=== PATIENT | male | born 1975 | race American Indian/Alaskan Native ===

== ENCOUNTER 2019-05-05 15:12 | Emergency (ER) | payer BC ==
[2019-05-05] MEDS ORDERED: predniSONE 20 MG Tab PO ONE ×2 (15:13→17:19)
[2019-05-05] MEDS ORDERED: Albuterol 8 GM Inhaler INH ONE (15:13)
[2019-05-05] MEDS ORDERED: Azithromycin 250 MG Tab PO ONE (15:13)
[2019-05-05] MEDS ORDERED: Albuterol/Ipratropium 3.0-0.5 MG/3 ML Neb Soln NEB ONE (16:26)
--- NOTE | 2019-05-05 17:06 | EDM.PDOC ---
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 He reports that the past 2 weeks he has had increasing cough with feelings of shortness of breath and difficulty breathing which seems to be much worse when he is at work and better when he is away from work for a while. Over the past few days he has noted marked shortness of breath and feeling like he can't get his breath. He has no pain. He rates his pain as a 0/10. He has had no nausea or vomiting. He has had unusual nasal congestion (he does have allergy type symptoms on a regular basis). He has had no fevers or chills. He is a smoker and he has a chronic cough but the cough seems to be much worse and he has really had no phlegm production except for clear/white phlegm there are no other associated signs or symptoms. There are no other modifying factors. 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 environments.) ED ROS GENERAL - Review of Systems Review Of Systems: See Below Constitutional: Reports: No Symptoms HEENT: Reports: Other (Chronic nasal congestion) Respiratory: Reports: Shortness of Breath, Cough Cardiovascular: Reports: No Symptoms GI/Abdominal: Reports: No Symptoms : Reports: No Symptoms Musculoskeletal: Reports: No Symptoms Skin: Reports: No Symptoms Neurological: Reports: No Symptoms Hematologic/Lymphatic: Reports: No Symptoms Immunologic: Reports: No Symptoms ED EXAM, GENERAL - Physical Exam Exam: See Below Exam Limited By: No Limitations General Appearance: Alert, WD/WN, No Apparent Distress, Other (It should be noted that the patient is being examined after DuoNeb has been given.) Eye Exam: Bilateral Eye: EOMI, Normal Inspection, PERRL Ears: Normal External Exam, Hearing Grossly Normal Ear Exam: Bilateral Ear: Auricle Normal Nose: Normal Inspection, Normal Mucosa, No Blood Throat/Mouth: Normal Inspection, Normal Lips, Normal Oropharynx, Normal Voice, No Airway Compromise, Other (No stridor) Head: Atraumatic, Normocephalic Neck: Normal Inspection, Supple, Non-Tender, Full Range of Motion Respiratory/Chest: No Respiratory Distress, Lungs Clear, Normal Breath Sounds, No Accessory Muscle Use, Chest Non-Tender Cardiovascular: Normal Peripheral Pulses, Regular Rate, Rhythm, No JVD, No Murmur Peripheral Pulses: 2+: Radial (L), Radial (R) GI/Abdominal: Normal Bowel Sounds, Soft, Non-Tender, No Mass Back Exam: Normal Inspection Extremities: Normal Inspection, Normal Range of Motion, Non-Tender, No Pedal Edema, Normal Capillary Refill Neurological: Alert, Oriented, CN II-XII Intact, Normal Cognition, No Motor/ Sensory Deficits Psychiatric: Normal Affect Skin Exam: Warm, Dry, Intact, Normal Color, No Rash Course - Vital Signs Last Recorded V/S: Last Vital Signs Temp 36.6 C 05/05/19 16:02 Pulse 75 05/05/19 16:02 Resp 18 05/05/19 16:02 BP 119/72 05/05/19 16:02 Pulse Ox 94 L 05/05/19 16:02 - Orders/Labs/Meds Orders: Active Orders 24 hr Category Date Time Status RT Aerosol Therapy [RC] ASDIRECTED Care 05/05/19 16:26 Active Chest 2V [CR] Stat Exams 05/05/19 16:26 Taken Meds: Medications Discontinued Medications Generic Name Dose Route Start Last Admin Trade Name Dora PRN Reason Stop Dose Admin Albuterol/Ipratropium 3 ml 05/05/19 16:26 05/05/19 16:31 Duoneb 3.0-0.5 Mg/3 Ml NEB 05/05/19 16:27 3 ml ONETIME ONE Administration Prednisone 60 mg 05/05/19 17:19 05/05/19 17:50 Prednisone PO 05/05/19 17:20 60 mg ONETIME ONE Administration Prednisone Confirm 05/05/19 17:47 05/05/19 18:42 Prednisone Administered 05/05/19 17:48 Not Given Dose 60 mg .ROUTE .[facility] - Radiology Interpretation Free Text/Narrative:: Chest x-ray PA and lateral shows some evidence of COPD with scarring in the left base. There is no infiltrate seen - Re-Assessments/Exams Free Text/Narrative Re-Assessment/Exam: 05/05/19 17:15: The patient received an DuoNeb nebulizer treatment and felt much improved after this. His history is consistent with active airway disease that is allergen induced associated with COPD. The patient is supposed to be wearing a respirator at his work but reports that he does not do this very often because he doesn't like to use it. He does report that seemed to show up approximately 2 weeks ago when he was moved to another area the plan that was more jennifer. His chest x-ray shows no infiltrate. I suspect that this is mostly allergen induced but he may have infectious component associated with COPD. Will treat the patient with Zithromax for 5 day course, prednisone for 5 day course and I will give the patient a prescription for an albuterol inhaler. He is to increase his fluid intake. He is to use his respirator at work. He is advised to follow-up with his primary doctor and to quit smoking. Precautions and reasons for return to the emergency department were discussed with the patient prior to his discharge. Departure - Departure Time of Disposition: 17:30 Disposition: Home, Self-Care 01 Condition: Good (Improved) Clinical Impression: Reactive airway disease Qualifiers: Asthma severity: moderate Asthma persistence: persistent Asthma complication type: with acute exacerbation Qualified Code(s): J45.41 - Moderate persistent asthma with (acute) exacerbation Allergy-induced asthma Qualifiers: Asthma severity: moderate Asthma persistence: persistent Asthma complication type: with acute exacerbation Qualified Code(s): J45.41 - Moderate persistent asthma with (acute) exacerbation - Discharge Information Prescriptions: Albuterol Sulfate [Albuterol Sulfate Hfa] 2 puff IH Q4H PRN #1 hfa.aer.ad PRN Reason: Wheezing/cough/short of breath predniSONE [Prednisone] 60 mg PO DAILY 5 Days #15 tablet Instructions: Bronchospasm, Adult, How to Use a Metered Dose Inhaler Referrals: PCP,Not In Area [Primary Care Provider] - Forms: ED Department Discharge, ED Return to Work/School Form Additional Instructions: You appear to have an allergen induced reactive airway disease. This is an asthma-like condition. Your influenza screen was negative. Your chest x-ray showed no evidence of pneumonia. However, your lungs were somewhat over expanded and given your smoking history, I am concerned that you have the beginning of emphysema and this is being made worse by the dust that you are exposed to at your job. There could also be an infection component associated with it. I strongly advise you to stop smoking. Drink plenty of fluids. Use your respirator while you are at work to protect you from the dust and allergens. Medication as prescribed (Zithromax, prednisone, albuterol inhaler) . Follow-up with your primary doctor. Back to the emergency department for worse breathing, chest pain, high fever, coughing up blood or any other concerning sign or symptom. Sepsis Event Note - Evaluation Sepsis Screening Result: No Definite Risk - Focused Exam Vital Signs: Vital Signs Temp Pulse Resp BP Pulse Ox 05/05/19 16:02 36.6 C 75 18 119/72 94 L Date Exam was Performed: 05/05/19 Time Exam was Performed: 21:50 - My Orders Last 24 Hours: My Active Orders 05/05/19 16:26 RT Aerosol Therapy [RC] ASDIRECTED Chest 2V [CR] Stat - Assessment/Plan Last 24 Hours: My Active Orders 05/05/19 16:26 RT Aerosol Therapy [RC] ASDIRECTED Chest 2V [CR] Stat
[2019-05-05] MEDS ORDERED: predniSONE 20 MG Tab ONE (17:47)
--- NOTE | 2019-05-07 16:58 | CR ---
INDICATION: Shortness of breath. CHEST, TWO VIEWS: PA and lateral views of the chest with 2 PA views 05/05/19 - no comparisons. The heart may be very minimally enlarged in the area of the left ventricle. The mediastinum and bony thorax were otherwise fairly unremarkable. There appear to be some minimal pleuroparenchymal changes at the left costophrenic angle with blunting of the costophrenic angle. This may represent a minimal pneumonia and pleuritis and possibly some atelectasis and should be correlated clinically. If old images of the chest are available for comparison, they may be of further diagnostic benefit. Otherwise, no finding to suggest definite active disease was identified. There is a prominent AP diameter with very minimally flattened diaphragm leaf raising question of obstructive airway disease. It should be correlated clinically. IMPRESSION: 1. Pleuroparenchymal change at the left costophrenic angle may represent pneumonia, pleuritis or possibly some atelectasis. This should be correlated clinically. It could also represent fibrosis. If old films are available for comparison, they may be helpful. 2. Question possibility of obstructive airway disease - correlate clinically. 3. Suggestion of minimal left ventricular enlargement. MTDD
== END 2019-05-05 18:03 | disposition home or self-care (01) ==
LOC: FB.ED 15:12
DX: J45.41 Moderate persistent asthma with (acute) exacerbation (principal); F17.210 Nicotine dependence, cigarettes, uncomplicated
CPT/HCPCS: 71046; 87804; 87804-59; 94640; 99285-25; A9270-GY; J7620-GY

== ENCOUNTER 2019-12-15 17:45 | Observation (INO) | payer BC ==
[~2019-12-15 17:45] MED LIST: Lidocaine 2% 5 ML SDV INJECT ONE; Propofol 200 MG/20 ML SDV IV ONE; Rocuronium 100 MG/10 ML MDV IV ONE; Succinylcholine 200 MG/10 ML MDV IV ONE
[2019-12-15] MEDS ORDERED: Ondansetron 4 MG/2 ML SDV IVPUSH ONE ×2 (17:58→22:20)
[2019-12-15] MEDS ORDERED: Morphine 4 MG/ML VIAL IVPUSH ONE (17:58)
[2019-12-15] MEDS ORDERED: Sodium Chloride 0.9% 1,000 ML IV SCH (18:00)
[2019-12-15] MEDS: Sodium Chloride 0.9% 10 ML Syringe FLUSH PRN (18:20)
[2019-12-15] MEDS ORDERED: Iopamidol 755 Mg/ML 100 ML Bottle IV ONE (18:54)
[2019-12-15] MEDS ORDERED: HYDROmorphone 2 MG/ML SDV IVPUSH ONE (19:32)
--- NOTE | 2019-12-15 20:47 | EDM.PDOC ---
ED HPI GENERAL MEDICAL PROBLEM - General Chief Complaint: Abdominal Pain Stated Complaint: ABD PAIN Time Seen by Provider: 12/15/19 17:50 Source of Information: Reports: Patient History Limitations: Reports: No Limitations - History of Present Illness INITIAL COMMENTS - FREE TEXT/NARRATIVE: Patient presented to the ED because of RLQ and LLQ pain which started at about 3 am today. The pain is sharp and cramping, 8/10. There is no associated N/V diarrhea or constipation. He denies any urinary symptoms, fever, or chills. Abdomen Pain Score (Numeric/FACES): 8 - Related Data Allergies Allergy/AdvReac Type Severity Reaction Status Date / Time No Known Allergies Allergy Verified 05/05/19 16:01 Home Meds: Home Meds Albuterol Sulfate [Albuterol Sulfate Hfa] 2 puff IH Q4H PRN #1 hfa.aer.ad 05/05/19 [Rx] lisinopriL [Zestril] 20 mg PO DAILY 05/05/19 [History] predniSONE [Prednisone] 60 mg PO DAILY 5 Days #15 tablet 05/05/19 [Rx] Past Medical History - Past Health History Medical/Surgical History: Denies Medical/Surgical History Cardiovascular History: Reports: Hypertension - Infectious Disease History Infectious Disease History: Reports: Mumps - Past Surgical History Other Surgical History Comment: No previous surgeries. 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.) ED ROS GENERAL - Review of Systems Review Of Systems: See Below Constitutional: Reports: No Symptoms HEENT: Reports: No Symptoms Respiratory: Reports: No Symptoms Cardiovascular: Reports: No Symptoms Endocrine: Reports: No Symptoms GI/Abdominal: Reports: Abdominal Pain : Reports: No Symptoms Musculoskeletal: Reports: No Symptoms Skin: Reports: No Symptoms Neurological: Reports: No Symptoms Psychiatric: Reports: No Symptoms Hematologic/Lymphatic: Reports: No Symptoms Immunologic: Reports: No Symptoms ED EXAM, GI/ABD - Physical Exam Exam: See Below Exam Limited By: No Limitations General Appearance: Alert, No Apparent Distress Ears: Normal External Exam, Normal Canal Nose: Normal Inspection, Normal Mucosa Throat/Mouth: Normal Inspection, Normal Lips, Normal Teeth Head: Atraumatic, Normocephalic Neck: Normal Inspection, Supple, Non-Tender Respiratory/Chest: No Respiratory Distress, Lungs Clear, Normal Breath Sounds Cardiovascular: Normal Peripheral Pulses, Regular Rate, Rhythm, No Edema, No Gallop GI/Abdominal Exam: Normal Bowel Sounds, Soft, No Organomegaly, No Distention, No Abnormal Bruit, No Mass, Other (tenderness RLQ and LLQ) Back Exam: Normal Inspection, Full Range of Motion Extremities: Normal Inspection, Normal Range of Motion, Non-Tender Course - Vital Signs Text/Narrative:: Labs/CT abd-pelvis result was discussed with patient and verbalized full understanding NS 1 L bolus Zofran 4 mg IV x1 Morphine 4 mg IV x1 Dilaudid 1 mg IV x1 Surgery consult with Dr Malhotra who will perform the appendectomy tonight. Last Recorded V/S: Last Vital Signs Temp 37.0 C 12/15/19 19:35 Pulse 83 12/15/19 19:35 Resp 18 12/15/19 19:35 BP 138/82 12/15/19 19:35 Pulse Ox 97 12/15/19 19:35 - Orders/Labs/Meds Orders: Active Orders 24 hr Category Date Time Status Abdomen Pelvis w Cont [CT] Stat Exams 12/15/19 17:57 Taken CORONAVIRUS COVID-19 PCR PHL Stat Lab 12/15/19 20:40 Ordered Sodium Chloride 0.9% [Normal Saline] 1,000 ml Med 12/15/19 18:00 Active IV ASDIRECTED Sodium Chloride 0.9% [Saline Flush] Med 12/15/19 17:57 Active 10 ml FLUSH ASDIRECTED PRN Saline Lock Insert [OM.PC] Routine Oth 12/15/19 17:57 Ordered Medication Orders Sodium Chloride (Normal Saline) 1,000 mls @ 999 mls/hr IV ASDIRECTED CATHY Last Admin: 12/15/19 18:15 Dose: 999 mls/hr Documented by: FELICIANO Sodium Chloride (Saline Flush) 10 ml FLUSH ASDIRECTED PRN PRN Reason: Keep Vein Open Last Admin: 12/15/19 18:20 Dose: 10 ml Documented by: FELICIANO Labs: Laboratory Tests 12/15/19 12/15/19 12/15/19 Range/Units 18:22 18:22 18:22 WBC 13.6 H (4.5-12.0) X10-3/uL RBC 4.99 (4.30-5.75) x10(6)uL Hgb 13.9 (13.5-17.8) g/dL Hct 41.8 (30.0-51.3) % MCV 83.8 (80-96) fL MCH 27.9 (27.7-33.6) pg MCHC 33.3 (32.2-35.4) g/dL RDW 13.8 (11.5-15.5) % Plt Count 231 (125-369) X10(3)uL MPV 7.2 L (7.4-10.4) fL Neut % (Auto) 68.4 (46-82) % Lymph % (Auto) 19.7 (13-37) % [place] % (Auto) 8.0 (4-12) % Eos % (Auto) 2 (1.0-5.0) % Baso % (Auto) 2 (0-2) % Neut # (Auto) 9.2 H (1.6-8.3) # Lymph # (Auto) 2.7 (0.6-5.0) # [place] # (Auto) 1.1 (0.0-1.3) # Eos # (Auto) 0.3 (0.0-0.8) # Baso # (Auto) 0.3 H (0.0-0.2) # Sodium 138 (135-145) mmol/L Potassium 3.8 (3.5-5.3) mmol/L Chloride 102 (100-110) mmol/L Carbon Dioxide 26 (21-32) mmol/L BUN 17 (7-18) mg/dL Creatinine 1.1 (0.70-1.30) mg/dL Est Cr Clr Drug Dosing TNP Estimated GFR (MDRD) > 60 (>60) BUN/Creatinine Ratio 15.5 (9-20) Glucose 86 (80-116) mg/dL Calcium 8.7 (8.6-10.2) mg/dL Total Bilirubin 0.5 (0.1-1.3) mg/dL AST 13 (5-25) IU/L ALT 17 (12-36) U/L Alkaline Phosphatase 54 L (56-112) IU/L Total Protein 7.3 (6.0-8.0) g/dL Albumin 3.6 (3.5-5.2) g/dL Globulin 3.7 g/dL Albumin/Globulin Ratio 1.0 Amylase 29 (25-115) U/L Lipase 93 (73-393) U/L Urine Color (YELLOW) Urine Appearance (CLEAR) Urine pH (5.0-6.5) Ur Specific [place] (1.010-1.025) Urine Protein (NEGATIVE) mg/dL Urine Glucose (UA) (NORMAL) mg/dL Urine Ketones (NEGATIVE) mg/dL Urine Occult Blood (NEGATIVE) Urine Nitrite (NEGATIVE) Urine Bilirubin (NEGATIVE) Urine Urobilinogen (NEGATIVE) mg/dL Ur Leukocyte Esterase (NEGATIVE) Urine RBC (0-5) Urine WBC (0-5) Ur Squamous Epith Cells (NS,R,O) Urine Bacteria (NS) Urine Mucus (NS) 12/15/19 Range/Units 19:20 WBC (4.5-12.0) X10-3/uL RBC (4.30-5.75) x10(6)uL Hgb (13.5-17.8) g/dL Hct (30.0-51.3) % MCV (80-96) fL MCH (27.7-33.6) pg MCHC (32.2-35.4) g/dL RDW (11.5-15.5) % Plt Count (125-369) X10(3)uL MPV (7.4-10.4) fL Neut % (Auto) (46-82) % Lymph % (Auto) (13-37) % [place] % (Auto) (4-12) % Eos % (Auto) (1.0-5.0) % Baso % (Auto) (0-2) % Neut # (Auto) (1.6-8.3) # Lymph # (Auto) (0.6-5.0) # [place] # (Auto) (0.0-1.3) # Eos # (Auto) (0.0-0.8) # Baso # (Auto) (0.0-0.2) # Sodium (135-145) mmol/L Potassium (3.5-5.3) mmol/L Chloride (100-110) mmol/L Carbon Dioxide (21-32) mmol/L BUN (7-18) mg/dL Creatinine (0.70-1.30) mg/dL Est Cr Clr Drug Dosing Estimated GFR (MDRD) (>60) BUN/Creatinine Ratio (9-20) Glucose (80-116) mg/dL Calcium (8.6-10.2) mg/dL Total Bilirubin (0.1-1.3) mg/dL AST (5-25) IU/L ALT (12-36) U/L Alkaline Phosphatase (56-112) IU/L Total Protein (6.0-8.0) g/dL Albumin (3.5-5.2) g/dL Globulin g/dL Albumin/Globulin Ratio Amylase (25-115) U/L Lipase (73-393) U/L Urine Color Yellow (YELLOW) Urine Appearance Clear (CLEAR) Urine pH 5.0 (5.0-6.5) Ur Specific [place] 1.010 (1.010-1.025) Urine Protein Negative (NEGATIVE) mg/dL Urine Glucose (UA) Normal (NORMAL) mg/dL Urine Ketones 50 H (NEGATIVE) mg/dL Urine Occult Blood Negative (NEGATIVE) Urine Nitrite Negative (NEGATIVE) Urine Bilirubin Negative (NEGATIVE) Urine Urobilinogen 1 H (NEGATIVE) mg/dL Ur Leukocyte Esterase Negative (NEGATIVE) Urine RBC 0-5 (0-5) Urine WBC 0-5 (0-5) Ur Squamous Epith Cells Occasional (NS,R,O) Urine Bacteria Few H (NS) Urine Mucus Few H (NS) Meds: Medications Generic Name Dose Route Start Last Admin Trade Name Freq PRN Reason Stop Dose Admin Sodium Chloride 1,000 mls @ 999 mls/hr 12/15/19 18:00 12/15/19 18:15 Normal Saline IV 999 mls/hr ASDIRECTED CATHY Administration Sodium Chloride 10 ml 12/15/19 17:57 12/15/19 18:20 Saline Flush FLUSH 10 ml ASDIRECTED PRN Administration Keep Vein Open Discontinued Medications Generic Name Dose Route Start Last Admin Trade Name Freq PRN Reason Stop Dose Admin Hydromorphone HCl 1 mg 12/15/19 19:32 12/15/19 19:39 Dilaudid IVPUSH 12/15/19 19:33 1 mg ONETIME ONE Administration Iopamidol 100 ml 12/15/19 18:54 12/15/19 19:12 Isovue-370 (76%) IV 12/15/19 18:55 100 ml ONETIME ONE Administration Morphine Sulfate 4 mg 12/15/19 17:58 12/15/19 18:15 Morphine IVPUSH 12/15/19 17:59 4 mg ONETIME ONE Administration Ondansetron HCl 4 mg 12/15/19 17:58 12/15/19 18:16 Zofran IVPUSH 12/15/19 17:59 4 mg ONETIME ONE Administration Departure - Departure Time of Disposition: 20:50 Disposition: Still A Patient 30 Condition: Good Clinical Impression: Appendicitis - Discharge Information Referrals: PCP,None [Primary Care Provider] - Sepsis Event Note (ED) - Evaluation Sepsis Screening Result: No Definite Risk - Focused Exam Vital Signs: Vital Signs Temp Pulse Pulse Resp BP BP Pulse Ox 12/15/19 19:35 37.0 C 83 18 138/82 97 12/15/19 17:48 36.6 C 59 L 16 114/69 99 - My Orders Last 24 Hours: My Active Orders 12/15/19 17:57 Abdomen Pelvis w Cont [CT] Stat Sodium Chloride 0.9% [Saline Flush] 10 ml FLUSH ASDIRECTED PRN Saline Lock Insert [OM.PC] Routine 12/15/19 18:00 Sodium Chloride 0.9% [Normal Saline] 1,000 ml IV ASDIRECTED 12/15/19 20:40 CORONAVIRUS COVID-19 PCR PHL Stat - Assessment/Plan Last 24 Hours: My Active Orders 12/15/19 17:57 Abdomen Pelvis w Cont [CT] Stat Sodium Chloride 0.9% [Saline Flush] 10 ml FLUSH ASDIRECTED PRN Saline Lock Insert [OM.PC] Routine 12/15/19 18:00 Sodium Chloride 0.9% [Normal Saline] 1,000 ml IV ASDIRECTED 12/15/19 20:40 CORONAVIRUS COVID-19 PCR PHL Stat
[2019-12-15] MEDS ORDERED: cefOXitin 2 GM Vial IVPUSH ONE (21:48)
--- NOTE | 2019-12-15 21:50 | PCM.HPR ---
H & P Addendum review - H & P Addendum Review Date of Original H & P: 12/15/19 Date Reviewed: 12/15/19 Time Reviewed: 21:50 Patient was Examined: No Changes
[2019-12-15] MEDS ORDERED: Lactated Ringers 1,000 ML IV SCH (22:00)
[2019-12-15] MEDS ORDERED: HYDROmorphone 2 MG/ML SDV IV ONE (22:20)
[2019-12-15] MEDS ORDERED: Midazolam 1 MG/ML 2 ML SDV IV ONE (22:20)
[2019-12-15] MEDS ORDERED: Ketorolac 30 MG/ML SDV IVPUSH ONE (22:20)
[2019-12-15] MEDS ORDERED: Neostigmine Methylsulfate 10 MG/10 ML MDV IVPUSH ONE (22:20)
[2019-12-15] MEDS ORDERED: Lactated Ringers 1,000 ML IV ONE (22:20)
[2019-12-15] MEDS ORDERED: Glycopyrrolate 0.2 MG/ML 5 ML MDV IV ONE (22:20)
[2019-12-15] MEDS ORDERED: fentaNYL 100 MCG/2 ML SDV IV ONE (22:20)
[2019-12-15] MEDS ORDERED: Dexamethasone 4 MG/ML 5 ML MDV IVPUSH ONE (22:20)
[2019-12-15] MEDS ORDERED: Morphine 2 MG/ML SYRINGE IVPUSH PRN (23:59)
--- NOTE | 2019-12-15 23:59 | PCM.OPNOTE ---
- General Post-Op/Procedure Note Date of Surgery/Procedure: 12/15/19 Operative Procedure(s): Lap Appy, mobilization of cecum Findings: Contained perforation in mesoappendix Pre Op Diagnosis: Acute Appy Post-Op Diagnosis: Same Anesthesia Technique: General ET Tube Primary Surgeon: Lauri Malhotra Pathology: Appendix EBL in mLs: 10 Complications: None Condition: Good Free Text/Narrative:: Intake & Output 12/15/19 12/15/19 12/16/19 14:59 22:59 06:59 Intake Total 0 Output Total 0 Balance 0
[2019-12-16] MEDS: Lactated Ringers 1,000 ML IV SCH ×3 (02:18→22:18)
[2019-12-16] MEDS: Acetaminophen/HYDROcodone 325-5 MG Tab PO PRN ×3 (08:21→19:05)
[2019-12-16] MEDS ORDERED: cefOXitin 1 GM Vial IVPUSH SCH (10:00)
--- NOTE | 2019-12-16 11:03 | PCM.SURGPN ---
- General Info Date of Service: 12/16/19 POD#: 1 Functional Status: Reports: Pain Controlled, Tolerating Diet (liquids) - Review of Systems General: Denies: Fever Pulmonary: Reports: No Symptoms Cardiovascular: Reports: No Symptoms Gastrointestinal: Reports: No Symptoms - Patient Data Vitals - Most Recent: Last Vital Signs Temp 97.4 F 12/16/19 04:20 Pulse 68 12/15/19 21:00 Resp 16 12/16/19 04:20 BP 105/54 L 12/16/19 04:20 Pulse Ox 95 12/16/19 04:20 Weight - Most Recent: 102.058 kg I&O - Last 24 Hours: Intake & Output 12/15/19 12/16/19 12/16/19 22:59 06:59 14:59 Intake Total 0 1238 Output Total 0 400 Balance 0 838 Lab Results Last 24 Hrs: Laboratory Results - last 24 hr 12/15/19 12/15/19 12/15/19 Range/Units 18:22 18:22 18:22 WBC 13.6 H (4.5-12.0) X10-3/uL RBC 4.99 (4.30-5.75) x10(6)uL Hgb 13.9 (13.5-17.8) g/dL Hct 41.8 (30.0-51.3) % MCV 83.8 (80-96) fL MCH 27.9 (27.7-33.6) pg MCHC 33.3 (32.2-35.4) g/dL RDW 13.8 (11.5-15.5) % Plt Count 231 (125-369) X10(3)uL MPV 7.2 L (7.4-10.4) fL Neut % (Auto) 68.4 (46-82) % Lymph % (Auto) 19.7 (13-37) % [place] % (Auto) 8.0 (4-12) % Eos % (Auto) 2 (1.0-5.0) % Baso % (Auto) 2 (0-2) % Neut # (Auto) 9.2 H (1.6-8.3) # Lymph # (Auto) 2.7 (0.6-5.0) # [place] # (Auto) 1.1 (0.0-1.3) # Eos # (Auto) 0.3 (0.0-0.8) # Baso # (Auto) 0.3 H (0.0-0.2) # Add Manual Diff Neutrophils % (Manual) (46-82) % Band Neutrophils % (0-6) % Lymphocytes % (Manual) (13-37) % Monocytes % (Manual) (4-12) % Sodium 138 (135-145) mmol/L Potassium 3.8 (3.5-5.3) mmol/L Chloride 102 (100-110) mmol/L Carbon Dioxide 26 (21-32) mmol/L BUN 17 (7-18) mg/dL Creatinine 1.1 (0.70-1.30) mg/dL Est Cr Clr Drug Dosing TNP Estimated GFR (MDRD) > 60 (>60) BUN/Creatinine Ratio 15.5 (9-20) Glucose 86 (80-116) mg/dL Calcium 8.7 (8.6-10.2) mg/dL Total Bilirubin 0.5 (0.1-1.3) mg/dL AST 13 (5-25) IU/L ALT 17 (12-36) U/L Alkaline Phosphatase 54 L (56-112) IU/L Total Protein 7.3 (6.0-8.0) g/dL Albumin 3.6 (3.5-5.2) g/dL Globulin 3.7 g/dL Albumin/Globulin Ratio 1.0 Amylase 29 (25-115) U/L Lipase 93 (73-393) U/L Urine Color (YELLOW) Urine Appearance (CLEAR) Urine pH (5.0-6.5) Ur Specific [place] (1.010-1.025) Urine Protein (NEGATIVE) mg/dL Urine Glucose (UA) (NORMAL) mg/dL Urine Ketones (NEGATIVE) mg/dL Urine Occult Blood (NEGATIVE) Urine Nitrite (NEGATIVE) Urine Bilirubin (NEGATIVE) Urine Urobilinogen (NEGATIVE) mg/dL Ur Leukocyte Esterase (NEGATIVE) Urine RBC (0-5) Urine WBC (0-5) Ur Squamous Epith Cells (NS,R,O) Urine Bacteria (NS) Urine Mucus (NS) SARS Virus RNA (PCR) (NEGATIVE) 12/15/19 12/15/19 12/16/19 Range/Units 19:20 20:50 06:15 WBC 14.7 H (4.5-12.0) X10-3/uL RBC 5.29 (4.30-5.75) x10(6)uL Hgb 14.5 (13.5-17.8) g/dL Hct 44.7 (30.0-51.3) % MCV 84.4 (80-96) fL MCH 27.4 L (27.7-33.6) pg MCHC 32.5 (32.2-35.4) g/dL RDW 13.8 (11.5-15.5) % Plt Count 372 H (125-369) X10(3)uL MPV 7.9 (7.4-10.4) fL Neut % (Auto) (46-82) % Lymph % (Auto) (13-37) % [place] % (Auto) (4-12) % Eos % (Auto) (1.0-5.0) % Baso % (Auto) (0-2) % Neut # (Auto) (1.6-8.3) # Lymph # (Auto) (0.6-5.0) # [place] # (Auto) (0.0-1.3) # Eos # (Auto) (0.0-0.8) # Baso # (Auto) (0.0-0.2) # Add Manual Diff Yes Neutrophils % (Manual) 81 (46-82) % Band Neutrophils % 4 (0-6) % Lymphocytes % (Manual) 7 L (13-37) % Monocytes % (Manual) 8 (4-12) % Sodium (135-145) mmol/L Potassium (3.5-5.3) mmol/L Chloride (100-110) mmol/L Carbon Dioxide (21-32) mmol/L BUN (7-18) mg/dL Creatinine (0.70-1.30) mg/dL Est Cr Clr Drug Dosing Estimated GFR (MDRD) (>60) BUN/Creatinine Ratio (9-20) Glucose (80-116) mg/dL Calcium (8.6-10.2) mg/dL Total Bilirubin (0.1-1.3) mg/dL AST (5-25) IU/L ALT (12-36) U/L Alkaline Phosphatase (56-112) IU/L Total Protein (6.0-8.0) g/dL Albumin (3.5-5.2) g/dL Globulin g/dL Albumin/Globulin Ratio Amylase (25-115) U/L Lipase (73-393) U/L Urine Color Yellow (YELLOW) Urine Appearance Clear (CLEAR) Urine pH 5.0 (5.0-6.5) Ur Specific [place] 1.010 (1.010-1.025) Urine Protein Negative (NEGATIVE) mg/dL Urine Glucose (UA) Normal (NORMAL) mg/dL Urine Ketones 50 H (NEGATIVE) mg/dL Urine Occult Blood Negative (NEGATIVE) Urine Nitrite Negative (NEGATIVE) Urine Bilirubin Negative (NEGATIVE) Urine Urobilinogen 1 H (NEGATIVE) mg/dL Ur Leukocyte Esterase Negative (NEGATIVE) Urine RBC 0-5 (0-5) Urine WBC 0-5 (0-5) Ur Squamous Epith Cells Occasional (NS,R,O) Urine Bacteria Few H (NS) Urine Mucus Few H (NS) SARS Virus RNA (PCR) Negative (NEGATIVE) Med Orders - Current: Current Medications Hydrocodone Bitart/Acetaminophen ([place] 325-5 Mg) 1 tab PO Q4H PRN PRN Reason: Pain (mild 1-3) Last Admin: 12/16/19 08:21 Dose: 1 tab Documented by: Sodium Chloride (Normal Saline) 1,000 mls @ 999 mls/hr IV ASDIRECTED [facility] Last Admin: 12/15/19 18:15 Dose: 999 mls/hr Documented by: Lactated Ringer's (Ringers, Lactated) 1,000 mls @ 125 mls/hr IV ASDIRECTED [facility] Last Admin: 12/16/19 02:18 Dose: 125 mls/hr Documented by: Piperacillin Sod/Tazobactam (Sod 3.375 gm/ Sodium Chloride) 50 mls @ 100 mls/hr IV Q6H [facility] Stop: 12/21/19 11:01 Morphine Sulfate (Morphine) 2 mg IVPUSH Q1H PRN PRN Reason: Pain (severe 7-10) Last Admin: 12/16/19 04:31 Dose: 2 mg Documented by: Sodium Chloride (Saline Flush) 10 ml FLUSH ASDIRECTED PRN PRN Reason: Keep Vein Open Last Admin: 12/15/19 18:20 Dose: 10 ml Documented by: Discontinued Medications Cefoxitin Sodium (Mefoxin) 2 gm IVPUSH ONETIME ONE Stop: 12/15/19 21:49 Last Admin: 12/15/19 22:54 Dose: Not Given Documented by: Cefoxitin Sodium (Mefoxin) 1 gm IVPUSH Q6H [facility] Last Admin: 12/16/19 10:24 Dose: 1 gm Documented by: Hydromorphone HCl (Dilaudid) 1 mg IVPUSH ONETIME ONE Stop: 12/15/19 19:33 Last Admin: 12/15/19 19:39 Dose: 1 mg Documented by: Lactated Ringer's (Ringers, Lactated) 1,000 mls @ 0 mls/hr IV ASDIRECTED [facility] Last Admin: 12/15/19 21:52 Dose: 25 mls/hr Documented by: Cefoxitin Sodium 1 gm/ Sodium (Chloride) 50 mls @ 100 mls/hr IVPUSH Q6H [facility] Stop: 12/20/19 04:01 Last Admin: 12/16/19 03:44 Dose: 100 mls/hr Documented by: Iopamidol (Isovue-370 (76%)) 100 ml IV ONETIME ONE Stop: 12/15/19 18:55 Last Admin: 12/15/19 19:12 Dose: 100 ml Documented by: Morphine Sulfate (Morphine) 4 mg IVPUSH ONETIME ONE Stop: 12/15/19 17:59 Last Admin: 12/15/19 18:15 Dose: 4 mg Documented by: Ondansetron HCl (Zofran) 4 mg IVPUSH ONETIME ONE Stop: 12/15/19 17:59 Last Admin: 12/15/19 18:16 Dose: 4 mg Documented by: - Exam Wound/Incisions: Healing Well, Dressing Dry and Intact General: Alert, Oriented Lungs: Clear to Auscultation GI/Abdominal Exam: Soft, Non-Tender Sepsis Event Note - Evaluation Sepsis Screening Result: No Definite Risk - Focused Exam Vital Signs: Vital Signs Temp Temp Resp BP Pulse Ox 12/16/19 04:20 97.4 F 16 105/54 L 95 12/16/19 02:53 16 122/62 96 12/16/19 02:30 97.1 F 16 123/71 99 12/16/19 01:55 15 95/60 95 12/16/19 01:25 15 96/60 95 12/16/19 01:10 97.2 F 15 95/59 L 95 12/16/19 00:55 14 99/62 96 12/16/19 00:40 97.6 F 14 106/70 97 12/16/19 00:26 115/66 12/16/19 00:25 14 97 12/16/19 00:20 12 108/70 97 12/16/19 00:15 14 123/69 97 12/16/19 00:10 14 126/79 97 12/16/19 00:05 15 121/74 94 L 12/16/19 00:00 17 118/72 100 12/15/19 23:55 97.4 F 18 132/83 100 Date Exam was Performed: 12/16/19 Time Exam was Performed: 11:01 - Problem List Review Problem List Initiated/Reviewed/Updated: Yes - My Orders Last 24 Hours: Active Orders 24 hr Category Date Time Status Patient Status [ADT] Routine ADT 12/15/19 23:59 Active Oxygen Therapy [RC] PRN Care 12/15/19 23:59 Active RT Incentive Spirometry [RC] Q2HWA Care 12/15/19 23:59 Active Clear Liquid Diet [DIET] Diet 12/17/19 Breakfast Ordered Abdomen Pelvis w Cont [CT] Stat Exams 12/15/19 17:57 Taken CBC WITH AUTO DIFF [HEME] Routine Lab 12/17/19 07:00 Ordered Acetaminophen/HYDROcodone [[place] 325-5 MG] Med 12/15/19 23:59 Active 1 tab PO Q4H PRN Lactated Ringers [Ringers, Lactated] 1,000 ml Med 12/15/19 23:45 Active IV ASDIRECTED Morphine Med 12/15/19 23:59 Active 2 mg IVPUSH Q1H PRN Piperacillin/Tazobactam [Zosyn] 3.375 gm Med 12/16/19 11:00 Ordered Sodium Chloride 0.9% [Normal Saline] 50 ml IV Q6H Sodium Chloride 0.9% [Normal Saline] 1,000 ml Med 12/15/19 18:00 Active IV ASDIRECTED Sodium Chloride 0.9% [Saline Flush] Med 12/15/19 17:57 Active 10 ml FLUSH ASDIRECTED PRN Saline Lock Insert [OM.PC] Routine Oth 12/15/19 17:57 Ordered Resuscitation Status Routine Resus Stat 12/15/19 23:59 Ordered Medication Orders Hydrocodone Bitart/Acetaminophen ([place] 325-5 Mg) 1 tab PO Q4H PRN PRN Reason: Pain (mild 1-3) Last Admin: 12/16/19 08:21 Dose: 1 tab Documented by: BUBBA Sodium Chloride (Normal Saline) 1,000 mls @ 999 mls/hr IV ASDIRECTED [facility] Last Admin: 12/15/19 18:15 Dose: 999 mls/hr Documented by: FELICIANO Lactated Ringer's (Ringers, Lactated) 1,000 mls @ 125 mls/hr IV ASDIRECTED [facility] Last Admin: 12/16/19 02:18 Dose: 125 mls/hr Documented by: GEOVANNY Piperacillin Sod/Tazobactam (Sod 3.375 gm/ Sodium Chloride) 50 mls @ 100 mls/hr IV Q6H [facility] Stop: 12/21/19 11:01 Morphine Sulfate (Morphine) 2 mg IVPUSH Q1H PRN PRN Reason: Pain (severe 7-10) Last Admin: 12/16/19 04:31 Dose: 2 mg Documented by: GEOVANNY Sodium Chloride (Saline Flush) 10 ml FLUSH ASDIRECTED PRN PRN Reason: Keep Vein Open Last Admin: 12/15/19 18:20 Dose: 10 ml Documented by: FELICIANO - Assessment Assessment (Free Text/Narrative):: Doing well POD #1 WBC up to 14K - Plan Plan (Free Text/Narrative):: Will cont IV antibiotics, change to Zosyn Recheck WBC in am
[2019-12-16] MEDS: Piperacillin/Tazobactam 3.375 GM in Sodium Chloride 0.9% 50 ML IV SCH ×3 (11:12→22:20)
[2019-12-16] MEDS: Sodium Chloride 0.9% 10 ML Syringe FLUSH PRN ×2 (11:15→23:03)
--- NOTE | 2019-12-16 13:46 | OR ---
DATE OF OPERATION: 12/15/2019 SURGEON: Lauri Malhotra MD PREOPERATIVE DIAGNOSIS: Acute appendicitis. POSTOPERATIVE DIAGNOSIS: Acute appendicitis with contained perforation. PROCEDURE: 1. Laparoscopic appendectomy. 2. Mobilization of the cecum. ANESTHESIA: General. PROCEDURE IN DETAIL: The patient was brought to the operating room, where general endotracheal anesthesia was administered. A time-out was performed. The abdomen was prepped with ChloraPrep and draped sterilely. An infraumbilical incision was made and extended into the peritoneal cavity without difficulty. The Ankit cannulator was introduced and pneumoperitoneum obtained. A 5 mm ports were placed in the suprapubic position and skilled nursing between the umbilicus and pubis. The patient was placed in Trendelenburg position and rotated to the left. The cecum was adhered to the right anterior abdominal wall and right pelvic side wall. This extended from the cecum to the mid ascending colon. 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 The cecum was over the pelvic brim, and the appendix was in the pelvis. The base of the appendix was not able to be visualized as it was behind the cecum in the pelvis. This required mobilization of the entire cecum and proximal ascending colon, so this could be brought back into the abdomen and the appendix better visualized. The mesoappendix was very thickened and the appendix was large, hard, and edematous. As I was starting to dissect through the mesoappendix, there was a contained perforation of some dark brownish liquid with some fecal and tight material in it. This was immediately suctioned. There was not enough fluid to aspirate for culture. I did take down the mesoappendix with 3 applications of the Endo-JANY 3.5 mm stapler. This allowed good visualization of the base of the appendix and cecum. This was then transected with an Endo-JANY 3.5 mm stapler. The appendix was placed in an Endopouch and brought out through the umbilical incision. The right lower quadrant and pelvis were irrigated with 1 L of saline and return was clear and hemostasis assured. Staple lines were intact. Ports were removed under direct vision and remained hemostatic. Umbilical fascia was closed with figure-of- eight #0 Vicryl. Skin was closed with #4-0 Vicryl subcuticular sutures. Benzoin and Steri-Strips were placed and Band-Aids applied. The patient tolerated the procedure well. Estimated blood loss was 10 mL. He returned to postanesthesia in stable condition. /[id number] TIARA/KWAME ANGELA
[2019-12-17] MEDS: Acetaminophen/HYDROcodone 325-5 MG Tab PO PRN ×3 (01:55→12:50)
[2019-12-17] MEDS: Piperacillin/Tazobactam 3.375 GM in Sodium Chloride 0.9% 50 ML IV SCH ×2 (04:22→11:10)
[2019-12-17] MEDS: Sodium Chloride 0.9% 10 ML Syringe FLUSH PRN (08:15)
[2019-12-17] MEDS ORDERED: predniSONE 10 MG Tab PO SCH (09:15)
[2019-12-17] MEDS ORDERED: Lisinopril 20 MG Tab PO SCH (09:15)
--- NOTE | 2019-12-17 13:53 | PCM.SURGPN ---
- General Info Date of Service: 12/17/19 POD#: 2 Functional Status: Reports: Pain Controlled, Tolerating Diet, Ambulating, Urinating - Review of Systems General: Reports: No Symptoms Pulmonary: Reports: No Symptoms Cardiovascular: Reports: No Symptoms Gastrointestinal: Reports: No Symptoms - Patient Data Vitals - Most Recent: Last Vital Signs Temp 98 F 12/17/19 08:00 Pulse 88 12/17/19 08:00 Resp 18 12/17/19 08:00 BP 128/84 12/17/19 10:10 Pulse Ox 99 12/17/19 08:00 Weight - Most Recent: 102.058 kg I&O - Last 24 Hours: Intake & Output 12/16/19 12/17/19 12/17/19 22:59 06:59 14:59 Intake Total 1049 1151 300 Balance 1049 1151 300 Lab Results Last 24 Hrs: Laboratory Results - last 24 hr 12/17/19 Range/Units 06:10 WBC 11.5 (4.5-12.0) X10-3/uL RBC 4.55 (4.30-5.75) x10(6)uL Hgb 12.7 L (13.5-17.8) g/dL Hct 38.1 (30.0-51.3) % MCV 83.7 (80-96) fL MCH 27.8 (27.7-33.6) pg MCHC 33.3 (32.2-35.4) g/dL RDW 14.0 (11.5-15.5) % Plt Count 368 (125-369) X10(3)uL MPV 7.7 (7.4-10.4) fL Neut % (Auto) 75.1 (46-82) % Lymph % (Auto) 13.1 (13-37) % [place] % (Auto) 9.9 (4-12) % Eos % (Auto) 0 L (1.0-5.0) % Baso % (Auto) 2 (0-2) % Neut # (Auto) 8.7 H (1.6-8.3) # Lymph # (Auto) 1.5 (0.6-5.0) # [place] # (Auto) 1.1 (0.0-1.3) # Eos # (Auto) 0.0 (0.0-0.8) # Baso # (Auto) 0.2 (0.0-0.2) # Med Orders - Current: Current Medications Hydrocodone Bitart/Acetaminophen ([place] 325-5 Mg) 1 tab PO Q4H PRN PRN Reason: Pain (mild 1-3) Last Admin: 12/17/19 12:50 Dose: 1 tab Documented by: Piperacillin Sod/Tazobactam (Sod 3.375 gm/ Sodium Chloride) 50 mls @ 100 mls/hr IV Q6H [facility] [place] Stop: 12/21/19 11:01 Last Admin: 12/17/19 11:10 Dose: 100 mls/hr Documented by: Lisinopril (Prinivil) 20 mg PO DAILY [facility] [place] Last Admin: 12/17/19 10:10 Dose: 20 mg Documented by: Morphine Sulfate (Morphine) 2 mg IVPUSH Q1H PRN PRN Reason: Pain (severe 7-10) Last Admin: 12/16/19 04:31 Dose: 2 mg Documented by: Prednisone (Prednisone) 10 mg PO DAILY [facility] [place] Last Admin: 12/17/19 10:10 Dose: 10 mg Documented by: Sodium Chloride (Saline Flush) 10 ml FLUSH ASDIRECTED PRN PRN Reason: Keep Vein Open Last Admin: 12/17/19 08:15 Dose: 10 ml Documented by: Discontinued Medications Cefoxitin Sodium (Mefoxin) 2 gm IVPUSH ONETIME ONE Stop: 12/15/19 21:49 Last Admin: 12/15/19 22:54 Dose: Not Given Documented by: Cefoxitin Sodium (Mefoxin) 1 gm IVPUSH Q6H [facility] [place] Last Admin: 12/16/19 10:24 Dose: 1 gm Documented by: Hydromorphone HCl (Dilaudid) 1 mg IVPUSH ONETIME ONE Stop: 12/15/19 19:33 Last Admin: 12/15/19 19:39 Dose: 1 mg Documented by: Sodium Chloride (Normal Saline) 1,000 mls @ 999 mls/hr IV ASDIRECTED [facility] [place] Last Admin: 12/15/19 18:15 Dose: 999 mls/hr Documented by: Lactated Ringer's (Ringers, Lactated) 1,000 mls @ 0 mls/hr IV ASDIRECTED [facility] [place] Last Admin: 12/15/19 21:52 Dose: 25 mls/hr Documented by: Lactated Ringer's (Ringers, Lactated) 1,000 mls @ 125 mls/hr IV ASDIRECTED [facility] [place] Last Admin: 12/16/19 22:18 Dose: 125 mls/hr Documented by: Cefoxitin Sodium 1 gm/ Sodium (Chloride) 50 mls @ 100 mls/hr IVPUSH Q6H [facility] Stop: 12/20/19 04:01 Last Admin: 12/16/19 03:44 Dose: 100 mls/hr Documented by: Iopamidol (Isovue-370 (76%)) 100 ml IV ONETIME ONE Stop: 12/15/19 18:55 Last Admin: 12/15/19 19:12 Dose: 100 ml Documented by: Morphine Sulfate (Morphine) 4 mg IVPUSH ONETIME ONE Stop: 12/15/19 17:59 Last Admin: 12/15/19 18:15 Dose: 4 mg Documented by: Ondansetron HCl (Zofran) 4 mg IVPUSH ONETIME ONE Stop: 12/15/19 17:59 Last Admin: 12/15/19 18:16 Dose: 4 mg Documented by: - Exam Wound/Incisions: Healing Well GI/Abdominal Exam: Soft, Non-Tender, Distended (mild) Sepsis Event Note - Evaluation Sepsis Screening Result: No Definite Risk - Focused Exam Vital Signs: Vital Signs Temp Pulse Resp BP BP Pulse Ox 12/17/19 10:10 128/84 12/17/19 08:00 98 F 88 18 128/84 99 Date Exam was Performed: 12/17/19 Time Exam was Performed: 13:47 - Problem List Review Problem List Initiated/Reviewed/Updated: Yes - My Orders Last 24 Hours: Active Orders 24 hr Category Date Time Status Consult to Behavioral Health [Behavioral Health Cons 12/17/19 10:45 Active Evaluation] [CONS] Routine Regular Diet [DIET] Diet 12/17/19 Breakfast Active lisinopriL [Prinivil] Med 12/17/19 09:15 Active 20 mg PO DAILY predniSONE Med 12/17/19 09:15 Active 10 mg PO DAILY Convert IV to Saline Lock [OM.PC] Routine Oth 12/17/19 08:09 Ordered Medication Orders Hydrocodone Bitart/Acetaminophen ([place] 325-5 Mg) 1 tab PO Q4H PRN PRN Reason: Pain (mild 1-3) Last Admin: 12/17/19 12:50 Dose: 1 tab Documented by: Admin: 12/17/19 07:25 Dose: 1 tab Documented by: Admin: 12/17/19 01:55 Dose: 1 tab Documented by: Admin: 12/16/19 19:05 Dose: 1 tab Documented by: Admin: 12/16/19 14:53 Dose: 1 tab Documented by: Admin: 12/16/19 08:21 Dose: 1 tab Documented by: BUBBA Piperacillin Sod/Tazobactam (Sod 3.375 gm/ Sodium Chloride) 50 mls @ 100 mls/hr IV Q6H [facility] [place] Stop: 12/21/19 11:01 Last Admin: 12/17/19 11:10 Dose: 100 mls/hr Documented by: Admin: 12/17/19 04:22 Dose: 100 mls/hr Documented by: Admin: 12/16/19 22:20 Dose: 100 mls/hr Documented by: Admin: 12/16/19 16:58 Dose: 100 mls/hr Documented by: Admin: 12/16/19 11:12 Dose: 100 mls/hr Documented by: SHELL Lisinopril (Prinivil) 20 mg PO DAILY [facility] [place] Last Admin: 12/17/19 10:10 Dose: 20 mg Documented by: BUBBA Morphine Sulfate (Morphine) 2 mg IVPUSH Q1H PRN PRN Reason: Pain (severe 7-10) Last Admin: 12/16/19 04:31 Dose: 2 mg Documented by: GEOVANNY Prednisone (Prednisone) 10 mg PO DAILY [facility] [place] Last Admin: 12/17/19 10:10 Dose: 10 mg Documented by: BUBBA Sodium Chloride (Saline Flush) 10 ml FLUSH ASDIRECTED PRN PRN Reason: Keep Vein Open Last Admin: 12/17/19 08:15 Dose: 10 ml Documented by: Admin: 12/16/19 23:03 Dose: 10 ml Documented by: Admin: 12/16/19 11:15 Dose: 10 ml Documented by: Admin: 12/15/19 18:20 Dose: 10 ml Documented by: FELICIANO - Assessment Assessment (Free Text/Narrative):: Doing well WBC normal - Plan Plan (Free Text/Narrative):: Discharge Rx called to [facility] for Augmentin 875 bid for 5 days
== END 2019-12-17 15:45 | disposition home or self-care (01) ==
LOC: FB.ED 17:45 → FB.SDS 21:25 → FB.MS 12-16 00:06
PROVIDERS: ADMIT Surgery; ATTEND Surgery
DX: K35.32 Acute appendicitis with perforation, localized peritonitis, and gangrene, without abscess (principal); K38.1 Appendicular concretions; Z11.59 Encounter for screening for other viral diseases
CPT/HCPCS: 00840; 36415; 44970; 74177; 80053; 81001; 82150; 83690; 85025; 87635; 88304; 94150; 96365; 96366; 96375; 99284; A9270; G0378; J0330; J0694; J1100; J1170; J1885; J2001; J2250; J2270; J2405; J2543; J2704; J2710; J3010; J3490; J7030; J7050; J7120; J7512; Q9967; 96374; U0002